=== PATIENT | male | born 1970 | race Caucasian/White ===

== ENCOUNTER 2021-02-26 18:46 | Emergency (ER) | payer OTHER ==
[2021-02-26] MEDS ORDERED: Aspirin 81 MG Tab.Chew PO ONE (18:53)
[2021-02-26] MEDS ORDERED: Sodium Chloride 0.9% 10 ML Syringe FLUSH PRN (18:53)
--- NOTE | 2021-02-26 19:10 | EDM.PDOC ---
ED HPI GENERAL MEDICAL PROBLEM - General Chief Complaint: Chest Pain Stated Complaint: [facility] Time Seen by Provider: 02/26/21 18:52 Source of Information: Reports: Patient, Police, RN Notes Reviewed History Limitations: Reports: No Limitations - History of Present Illness INITIAL COMMENTS - FREE TEXT/NARRATIVE: Patient presents today with complaints of right chest pain off and on throughout the day today. He states the pain is worse with taking a deep breath. He reports he had 4 baby aspirin while in skilled nursing. He states last use of methamphetamine was 3 days ago. He reports 1 to 2 ppd use tobacco. He denies any other recent illicit drug use. He reports he thinks he had a heart stent before but he is not sure. He denies syncope, dizziness, palpitations. 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 Right Anterior Chest Pain Score (Numeric/FACES): 4 - Related Data Allergies Allergy/AdvReac Type Severity Reaction Status Date / Time levofloxacin [From Levaquin] Allergy Cannot Verified 02/26/21 19:10 Remember lisinopril Allergy Cough Verified 02/26/21 19:10 tramadol Allergy Nausea Verified 02/26/21 19:10 Home Meds: Home Meds Acetaminophen [Tylenol] 325 mg PO Q6H PRN 02/26/21 [History] Albuterol Sulfate [Proair Hfa] 2 puff IH Q4H PRN 02/26/21 [History] Hydrochlorothiazide/Losartan [Hyzaar 100-25 MG] 1 tab PO DAILY 02/26/21 [History] Meloxicam 15 mg PO DAILY 02/26/21 [History] Omeprazole Magnesium [Prilosec Otc] 20 mg PO DAILY 02/26/21 [History] Pregabalin [Lyrica] 75 mg PO TID 02/26/21 [History] Sildenafil Citrate [Viagra] 100 mg PO ASDIRECTED 02/26/21 [History] ED ROS GENERAL - Review of Systems Review Of Systems: See Below Constitutional: Reports: No Symptoms HEENT: Reports: No Symptoms Respiratory: Reports: No Symptoms Cardiovascular: Reports: Chest Pain Endocrine: Reports: No Symptoms GI/Abdominal: Reports: No Symptoms : Reports: No Symptoms Musculoskeletal: Reports: No Symptoms Skin: Reports: No Symptoms Neurological: Reports: No Symptoms Psychiatric: Reports: No Symptoms Hematologic/Lymphatic: Reports: No Symptoms Immunologic: Reports: No Symptoms ED EXAM, GENERAL - Physical Exam Exam: See Below Exam Limited By: No Limitations General Appearance: Alert, WD/WN, No Apparent Distress Eye Exam: Bilateral Eye: Normal Inspection, PERRL Ears: Normal External Exam, Normal Canal, Hearing Grossly Normal, Normal TMs Throat/Mouth: Normal Gums, Normal Voice, No Airway Compromise, Other (dental decay) Head: Atraumatic, Normocephalic Neck: Normal Inspection, Supple, Non-Tender, Full Range of Motion. No: Lymphadenopathy (R), Lymphadenopathy (L) Respiratory/Chest: No Respiratory Distress, No Accessory Muscle Use, Decreased Breath Sounds. No: Crackles, Rales, Rhonchi, Wheezing, Stridor, Pleural Rub, Retractions, Splinting Cardiovascular: Normal Peripheral Pulses, Regular Rate, Rhythm, No Murmur, No Rub Peripheral Pulses: 3+: Radial (L), Radial (R) GI/Abdominal: Normal Bowel Sounds, Soft, Non-Tender, No Distention, No Mass. No: Guarding, Rigid, Rebound, Tender Back Exam: Normal Inspection, Full Range of Motion. No: CVA Tenderness (R), CVA Tenderness (L) Extremities: Normal Inspection, Normal Range of Motion, Non-Tender, No Pedal Edema, Normal Capillary Refill Neurological: Alert, Oriented, CN II-XII Intact, Normal Cognition, Normal Reflexes, No Motor/Sensory Deficits Psychiatric: Normal Affect, Normal Mood Skin Exam: Warm, Dry, Intact, Normal Color, No Rash Lymphatic: No Adenopathy #1 Interpretation EKG Date: 02/26/21 Time: 18:51 Rhythm: NSR [place]: Normal P-Wave: Present QRS: Normal ST-T: Normal QT: Normal CO/PQ Interval: 231 Comparison: NA - No Prior EKG Course - Vital Signs Last Recorded V/S: Last Vital Signs Temp 36.4 C 02/26/21 18:56 Pulse 49 L 02/26/21 22:28 Resp 16 02/26/21 22:28 BP 123/70 02/26/21 22:28 Pulse Ox 97 02/26/21 22:28 - Orders/Labs/Meds Orders: Active Orders 24 hr Category Date Time Status Chest 1V Frontal [CR] Stat Exams 02/26/21 18:51 Taken Saline Lock Insert [OM.PC] Routine Oth 02/26/21 18:53 Ordered EKG 12 Lead [EK] Routine Ther 02/26/21 21:44 Ordered Labs: Laboratory Tests 02/26/21 02/26/21 02/26/21 Range/Units 19:08 19:08 19:08 WBC 5.2 (4.5-11.0) K/uL RBC 4.45 (4.30-5.90) M/uL Hgb 12.6 (12.0-15.0) g/dL Hct 39.2 L (40.0-54.0) % MCV 88 (80-98) fL MCH 28 (27-31) pg MCHC 32 (32-36) % Plt Count 187 (150-400) K/uL Neut % (Auto) 50.2 (36-66) % Lymph % (Auto) 35.2 (24-44) % [place] % (Auto) 11.5 H (2-6) % Eos % (Auto) 2.7 (2-4) % Baso % (Auto) 0.4 (0-1) % D-Dimer, Quantitative 680.73 H (0.0-500.0) ng/mL Sodium 144 (140-148) mmol/L Potassium 3.5 L (3.6-5.2) mmol/L Chloride 106 (100-108) mmol/L Carbon Dioxide 27 (21-32) mmol/L Anion Gap 14.5 H (5.0-14.0) mmol/L BUN 13 (7-18) mg/dL Creatinine 0.9 (0.8-1.3) mg/dL Est Cr Clr Drug Dosing 111.63 mL/min Estimated GFR (MDRD) > 60 (>60) Glucose 98 (74-106) mg/dL Calcium 8.5 (8.5-10.1) mg/dL Total Bilirubin 0.2 (0.2-1.0) mg/dL AST 38 H (15-37) U/L ALT 53 (12-78) U/L Alkaline Phosphatase 81 (46-116) U/L Troponin I < 0.017 (0.000-0.056) ng/mL Total Protein 6.7 (6.4-8.2) g/dL Albumin 3.4 (3.4-5.0) g/dL Globulin 3.3 (2.3-3.5) g/dL Albumin/Globulin Ratio 1.0 L (1.2-2.2) 02/26/21 Range/Units 23:04 WBC (4.5-11.0) K/uL RBC (4.30-5.90) M/uL Hgb (12.0-15.0) g/dL Hct (40.0-54.0) % MCV (80-98) fL MCH (27-31) pg MCHC (32-36) % Plt Count (150-400) K/uL Neut % (Auto) (36-66) % Lymph % (Auto) (24-44) % [place] % (Auto) (2-6) % Eos % (Auto) (2-4) % Baso % (Auto) (0-1) % D-Dimer, Quantitative (0.0-500.0) ng/mL Sodium (140-148) mmol/L Potassium (3.6-5.2) mmol/L Chloride (100-108) mmol/L Carbon Dioxide (21-32) mmol/L Anion Gap (5.0-14.0) mmol/L BUN (7-18) mg/dL Creatinine (0.8-1.3) mg/dL Est Cr Clr Drug Dosing mL/min Estimated GFR (MDRD) (>60) Glucose (74-106) mg/dL Calcium (8.5-10.1) mg/dL Total Bilirubin (0.2-1.0) mg/dL AST (15-37) U/L ALT (12-78) U/L Alkaline Phosphatase (46-116) U/L Troponin I < 0.017 (0.000-0.056) ng/mL Total Protein (6.4-8.2) g/dL Albumin (3.4-5.0) g/dL Globulin (2.3-3.5) g/dL Albumin/Globulin Ratio (1.2-2.2) Patient lab work reviewed, D-dimer elevated, we will complete a CT angio of chest to R/O PE. Second troponin negative. Meds: Medications Discontinued Medications Generic Name Dose Route Start Last Admin Trade Name Freq PRN Reason Stop Dose Admin Aspirin 324 mg 02/26/21 18:53 Aspirin 81 Mg Tab.Chew PO 02/26/21 18:54 ONETIME ONE Sodium Chloride 100 mls @ 3.5 mls/sec 02/26/21 20:00 02/26/21 22:42 Normal Saline IV 4 mls/sec ASDIRECTED LILLIE Administration Iopamidol 100 ml 02/26/21 20:00 02/26/21 22:42 Iopamidol 755 Mg/Ml 100 Ml Bottle IV 100 ml . DIRECTED LILLIE Administration Sodium Chloride 10 ml 02/26/21 18:53 Sodium Chloride 0.9% 10 Ml Syringe FLUSH ASDIRECTED PRN Keep Vein Open Sodium Chloride 10 ml 02/26/21 19:54 02/26/21 22:42 Sodium Chloride 0.9% 10 Ml Syringe FLUSH 02/26/21 19:55 10 ml ONETIME ONE Administration - Radiology Interpretation Free Text/Narrative:: Chest x-ray wet read, no acute findings noted. Radiology read pending. CTA completed noted: No pulmonary embolism or other acute intrathoracic abnormality identified. Nodule liver contour suspicious for cirrhosis. Dilated ascending aorta measuring 4.0 cm. Nonspecific mildly enlarged right paratracheal lymph node measuring 1.4 x 1.2cm. No other abnormalities noted. Patient advised to follow up with primary provider. Take NSAID for pain as needed. - Re-Assessments/Exams Free Text/Narrative Re-Assessment/Exam: 02/26/2119:55 Patient sleeping off and on HR 48 to 50bpm, respirations even and unlabored. 02/26/21 21:22 Difficulty with IV insertion for CTA chest. Significant history of illicit IV drug use. Patient resting, at times of resting, respirations even and unlabored, HR 48 to 50 BPM, no ectopy noted. 02/26/21 22:59 Patient sleeping off and on, Vital signs stable. 02/26/21 23:00 Departure - Departure Time of Disposition: 23:35 Disposition: Admitted As Inpatient 64 Clinical Impression: Atypical chest pain, Methamphetamine abuse Instructions: Nonspecific Chest Pain, Adult, [id number] Referrals: PCP,None [Primary Care Provider] - Forms: ED Department Discharge Additional Instructions: You have been evaluated and treated for atypical chest pain with methamphetamine abuse. CTA chest negative for PE Troponin x 2 negative While in emergency room telemetry shows no ectopy or ST changes Take Ibuprofen 800mg three times a day with food for pain. Can also take acetaminophen as needed for pain. Follow up with primary provider for recheck in 10 to 14 days. Noted dilated ascending aorta measuring 4.0cm today - will need to follow. Return for worsening, issues or concerns. Sepsis Event Note (ED) - Evaluation Sepsis Screening Result: No Definite Risk - Focused Exam Vital Signs: Vital Signs Temp Pulse Resp BP Pulse Ox 02/26/21 22:28 49 L 16 123/70 97 02/26/21 21:49 46 L 17 109/68 98 02/26/21 20:04 49 L 11 L 112/65 95 02/26/21 18:56 36.4 C 67 16 131/78 02/26/21 18:46 67 131/78 95 - My Orders Last 24 Hours: My Active Orders 02/26/21 18:51 Chest 1V Frontal [CR] Stat 02/26/21 18:53 Saline Lock Insert [OM.PC] Routine 02/26/21 21:44 EKG 12 Lead [EK] Routine - Assessment/Plan Last 24 Hours: My Active Orders 02/26/21 18:51 Chest 1V Frontal [CR] Stat 02/26/21 18:53 Saline Lock Insert [OM.PC] Routine 02/26/21 21:44 EKG 12 Lead [EK] Routine Assessment:: Atypical chest pain methamphetamine abuse Plan: Patient evaluated and treated for atypical chest pain with methamphetamine abuse. CTA chest negative for PE Troponin x 2 negative While in emergency room telemetry shows no ectopy or ST changes Patient case reviewed with Dr. Villela, he is in agreement with plan. Take Ibuprofen 800mg three times a day with food for pain. Can also take acetaminophen as needed for pain. Follow up with primary provider for recheck in 10 to 14 days. Noted dilated ascending aorta measuring 4.0cm today - will need to follow. Return for worsening, issues or concerns.
[2021-02-26] MEDS ORDERED: Sodium Chloride 0.9% 10 ML Syringe FLUSH ONE (19:54)
[2021-02-26] MEDS ORDERED: Sodium Chloride 0.9% 100 ML IV SCH (20:00)
[2021-02-26] MEDS ORDERED: Iopamidol 755 Mg/ML 100 ML Bottle IV SCH (20:00)
--- NOTE | 2021-02-26 23:27 | CRLCT ---
INDICATION: chest pain, + d-dimer CT CHEST WITH CONTRAST TECHNIQUE: Multidetector CT imaging was performed through the chest following intravenous contrast administration using 100 mL Isovue 370. Coronal and sagittal reconstructions were generated. COMPARISON: None. FINDINGS: Lungs and airways: Shallow inspiration with diffuse mild lung atelectasis. No focal lung consolidation identified. Incidental calcified granulomas in the right lower lobe. Central airways are patent. Pleura and pleural spaces: No pleural effusions or pneumothorax. Heart and mediastinum: Upper normal heart size. No significant pericardial effusion. Nonspecific mildly enlarged right paratracheal lymph node on image 36 of series 6 measuring 1.4 x 1.2 centimeters. Vascular structures: No filling defects in the pulmonary arterial tree to suggest pulmonary emboli. Dilated ascending aorta measuring 4.0 centimeters in AP diameter. Mild to moderate coronary artery calcifications. Chest wall and axillae: No mass or axillary lymphadenopathy. Osseous structures: Normal for age. No acute fractures identified. Upper abdomen: Nodular liver contour suggesting cirrhosis. Status post cholecystectomy. IMPRESSION: 1. No pulmonary emboli or other acute intrathoracic abnormality identified. 2. Nodular liver contour suspicious for cirrhosis. 3. Dilated ascending aorta measuring 4.0 centimeters in AP diameter. 4. Nonacute additional findings as detailed above. CARLOS CHAPARRO MD [facility] Dictated by Renato Chaparro MD @ 02/26/2021 11:24:37 PM Dictated by: Renato Chaparro MD @ 02/26/2021 23:24:58 (Electronically Signed)
--- NOTE | 2021-02-28 14:49 | CR ---
CHEST: Portable 02/26/2021 at 7:12 PM CLINICAL HISTORY:Chest pain COMPARISON:None FINDINGS: The heart size, pulmonary vascularity and hilar structures are normal. No infiltrate effusion or pneumothorax is seen. IMPRESSION: No acute cardiopulmonary process.
== END 2021-02-26 23:53 | disposition critical access hospital (66) ==
LOC: JP.ED 18:46
DX: R07.89 Other chest pain (principal); F15.10 Other stimulant abuse, uncomplicated; Z88.1 Allergy status to other antibiotic agents; Z88.5 Allergy status to narcotic agent; Z88.8 Allergy status to other drugs, medicaments and biological substances; Z79.899 Other long term (current) drug therapy
CPT/HCPCS: 36415; 71045; 71275; 80053; 84484; 85025; 85379; 93005; 99285; Q9967